=== PATIENT | female | born 1990 | race Caucasian/White ===

== ENCOUNTER 2017-07-25 23:30 | Inpatient (IN) | payer SELFPAY ==
[~2017-07-25] VITALS: Ht 154.9 cm; Wt 76.2 kg
[2017-07-26 00:12] VITALS: BP 114/76
[2017-07-26 00:27] LABS: GLUCOMETER DEV NAME(LOC) 4S 8; GLUCOSE,POINT OF CARE 80 MG/DL (70-110)
[2017-07-26] MEDS ORDERED: RINGERS SOLUTION,LACTATED 1,000 ML IV ONE ×3 (00:45→10:55)
[2017-07-26] MEDS ORDERED: RINGERS SOLUTION,LACTATED 1,000 ML IV SCH ×2 (01:00→16:18)
[2017-07-26] MEDS: RINGERS SOLUTION,LACTATED 1,000 ML IV SCH ×2 (01:44→19:58)
[2017-07-26] MEDS ORDERED: NIFEdipine 10 MG CAPSULE PO ONE (05:45)
[2017-07-26 06:38] LABS: BASOPHILS % (AUTO) 0.3 % (0.0-2.0); EOSINOPHILS % (AUTO) 0.6 % (1.0-6.0); HEMATOCRIT 26.3 % (36-46); HEMOGLOBIN 8.7 g/dL (12.0-16.0); LYMPHOCYTES # (AUTO) 2.6 K/uL (1.0-4.8); LYMPHOCYTES % (AUTO) 24.5 % (22.0-44.0); MEAN CORPUSCULAR HEMOGLOBIN 26.9 pg (26.0-34.0); MEAN CORPUSCULAR HGB CONC 33.1 G/dL (31.0-37.0); MEAN CORPUSCULAR VOLUME 81 fL (80-100); MONOCYTES # (AUTO) 0.5 K/uL (0.1-1.0); MONOCYTES % (AUTO) 4.8 % (2.0-9.0); NEUTROPHILS # (AUTO) 7.4 K/uL (1.8-7.7); NEUTROPHILS % (AUTO) 69.8 % (40.0-70.0); PLATELET COUNT (AUTO)-OB 235 K/uL (150-450); RED BLOOD CELL COUNT(AUTO) 3.24 MIL/uL (4.00-5.20); RED CELL DISTRIBUTION WIDTH 15.6 % (11.5-14.5)
[2017-07-26 08:07] LABS: RUBELLA SCREEN (IGG) IMMUNE (IMMUNE)
[2017-07-26] MEDS ORDERED: METOCLOPRAMIDE HCL 5 MG/ML 2 ML VIAL IVP ONE (11:00)
[2017-07-26] MEDS ORDERED: CITRIC ACID/SODIUM CITRATE 30 ML SOLUTION UDCUP PO ONE (11:00)
[2017-07-26] MEDS ORDERED: FentaNYL CITRATE-PF 100 MCG/2 ML VIAL ONE (11:10)
[2017-07-26] MEDS ORDERED: CeFAZolin 2 GM/DEXTROSE 50 ML IV ONE (11:10)
[2017-07-26] MEDS ORDERED: MORPHINE SULFATE/PF 0.5 MG/ML 10 ML AMP ONE (11:11)
[2017-07-26] MEDS ORDERED: MEPERIDINE-PF 25 MG/ML SYRINGE IVP PRN (12:00)
[2017-07-26] MEDS ORDERED: ONDANSETRON HCL 4 MG/2 ML VIAL IVP PRN ×2 (12:00→12:15)
[2017-07-26] MEDS ORDERED: FentaNYL CITRATE-PF 100 MCG/2 ML VIAL IVP PRN ×4 (12:00→12:15)
[2017-07-26] MEDS ORDERED: DiphenhydrAMINE HCL 50 MG/ML VIAL IVP PRN ×2 (12:00→12:15)
[2017-07-26] MEDS ORDERED: DEXAMETHASONE SOD PHOS 4 MG/ML VIAL IVP PRN (12:00)
[2017-07-26] MEDS ORDERED: NALBUPHINE HCL 10 MG/ML VIAL IVP PRN ×3 (12:00→12:15)
[2017-07-26] MEDS ORDERED: NALOXONE HCL 0.4 MG/ML VIAL IVP PRN (12:15)
[2017-07-26] MEDS ORDERED: OXYTOCIN 20 UNITS/LACT RINGERS 1,000 ML IV SCH (16:30)
[2017-07-26] MEDS ORDERED: MEASLES/MUMPS/RUBELLA VACCINE, LIVE 0.5 ML/VIAL SQ ONE (16:30)
[2017-07-26] MEDS: KETOROLAC TROMETHAMINE 30 MG/ML VIAL IVP SCH (18:35)
[2017-07-26] MEDS ORDERED: OXYGEN THERAPY IH SCH ×4 (20:00)
[2017-07-26] MEDS ORDERED: EPHEDrine SULFATE 50 MG/ML VIAL IM ONE (21:12)
[2017-07-26] MEDS ORDERED: KETOROLAC TROMETHAMINE 60 MG/2 ML VIAL IM ONE (21:12)
[2017-07-26] MEDS ORDERED: ONDANSETRON HCL 4 MG/2 ML VIAL IVP ONE (21:12)
[2017-07-26] MEDS ORDERED: DEXAMETHASONE SOD PHOS 4 MG/ML VIAL IVP ONE (21:12)
[2017-07-26] MEDS ORDERED: PHENYLEPHRINE HCL 10 MG/ML VIAL IVP ONE (21:12)
[2017-07-27] MEDS: KETOROLAC TROMETHAMINE 30 MG/ML VIAL IVP SCH (00:57)
[2017-07-27] MEDS: RINGERS SOLUTION,LACTATED 1,000 ML IV SCH (03:33)
[2017-07-27 06:08] LABS: BASOPHILS % (AUTO) 0.3 % (0.0-2.0); EOSINOPHILS % (AUTO) 0.3 % (1.0-6.0); LYMPHOCYTES # (AUTO) 2.8 K/uL (1.0-4.8); LYMPHOCYTES % (AUTO) 22.4 % (22.0-44.0); MEAN CORPUSCULAR HEMOGLOBIN 26.3 pg (26.0-34.0); MEAN CORPUSCULAR HGB CONC 32.4 G/dL (31.0-37.0); MEAN CORPUSCULAR VOLUME 81 fL (80-100); MONOCYTES # (AUTO) 0.7 K/uL (0.1-1.0); NEUTROPHILS # (AUTO) 8.9 K/uL (1.8-7.7); PLATELET COUNT (AUTO)-OB 221 K/uL (150-450); RED BLOOD CELL COUNT(AUTO) 2.25 MIL/uL (4.00-5.20); RED CELL DISTRIBUTION WIDTH 15.6 % (11.5-14.5)
[2017-07-27 07:01] LABS: HEMATOCRIT 18.2 % (36-46); HEMOGLOBIN 5.9 g/dL (12.0-16.0)
[2017-07-27] MEDS: LANOLIN 7 GM OINTMENT TP PRN (08:25)
[2017-07-27] MEDS: IBUPROFEN 800 MG TABLET PO PRN ×3 (08:25→19:26)
[2017-07-27] MEDS: ACETAMINOPHEN/CODEINE 300-30 MG TABLET PO PRN ×5 (08:25→23:01)
[2017-07-27] MEDS: MAGNESIUM HYDROXIDE SUSPENSION 30 ML UDCUP PO PRN ×2 (08:25→21:28)
[2017-07-28 06:20] LABS: BASOPHILS % (AUTO) 0.3 % (0.0-2.0); EOSINOPHILS % (AUTO) 0.6 % (1.0-6.0); LYMPHOCYTES # (AUTO) 2.3 K/uL (1.0-4.8); LYMPHOCYTES % (AUTO) 21.1 % (22.0-44.0); MEAN CORPUSCULAR HEMOGLOBIN 26.3 pg (26.0-34.0); MEAN CORPUSCULAR HGB CONC 32.4 G/dL (31.0-37.0); MEAN CORPUSCULAR VOLUME 81 fL (80-100); MONOCYTES # (AUTO) 0.5 K/uL (0.1-1.0); MONOCYTES % (AUTO) 4.7 % (2.0-9.0); NEUTROPHILS # (AUTO) 8.1 K/uL (1.8-7.7); NEUTROPHILS % (AUTO) 73.3 % (40.0-70.0); PLATELET COUNT (AUTO)-OB 243 K/uL (150-450); RED BLOOD CELL COUNT(AUTO) 2.17 MIL/uL (4.00-5.20); RED CELL DISTRIBUTION WIDTH 15.9 % (11.5-14.5)
[2017-07-28 06:57] LABS: HEMOGLOBIN 5.7 g/dL (12.0-16.0)
[2017-07-28 06:58] LABS: HEMATOCRIT 17.6 % (36-46)
[2017-07-28] MEDS: MAGNESIUM HYDROXIDE SUSPENSION 30 ML UDCUP PO PRN ×2 (08:14→22:05)
[2017-07-28] MEDS: ACETAMINOPHEN/CODEINE 300-30 MG TABLET PO PRN ×4 (08:18→22:09)
[2017-07-29] MEDS: IBUPROFEN 800 MG TABLET PO PRN (03:20)
[2017-07-29] MEDS: ACETAMINOPHEN/CODEINE 300-30 MG TABLET PO PRN (07:59)
[2017-07-29] MEDS: LANOLIN 7 GM OINTMENT TP PRN (08:53)
[2017-07-29] MEDS: MAGNESIUM HYDROXIDE SUSPENSION 30 ML UDCUP PO PRN (08:53)
[2017-07-29] MEDS ORDERED: BISACODYL 10 MG RECTAL RECTAL SUPPOSITORY PR ONE (10:30)
[2017-07-29] MEDS ORDERED: IBUP-2070 PO (10:50)
[2017-07-29] MEDS ORDERED: FERR-89 PO (10:52)
[2017-07-29] MEDS ORDERED: FOLI1 PO (10:52)
== END 2017-07-29 12:40 | disposition home or self-care (01) | DRG 766 ==
LOC: 4S 23:30 → OBSVTOIN 23:30 → NSY 07-26 13:20 → 4S 07-26 15:50
PROVIDERS: ADMIT Obstetrics & Gynecology; ATTEND Obstetrics & Gynecology
PROC: 10D00Z1 Extraction of Products of Conception, Low, Open Approach (ICD-10-PCS; principal; 2017-07-26)
DX: O34.211 Maternal care for low transverse scar from previous cesarean delivery (principal); Z37.0 Single live birth; Z3A.40 40 weeks gestation of pregnancy
CPT/HCPCS: 76811; 80307; 82962; 86592; 86762; 86850; 86900; 86901; 87081; 87340; J0690; J1100; J1885; J2274; J2370; J2405; J2765; J3010; J3490; J7120